=== PATIENT | male | born 1940 | race Two or more races ===

== ENCOUNTER 2024-05-27 12:32 | Inpatient (IN) | payer OTHER ==
[~2024-05-27] VITALS: Ht 172.7 cm; Wt 65.8 kg
--- NOTE | 2024-05-27 12:56 | NUR ---
PACIENTE ALERTA Y ORIENTADO X 3. REFIERE DESDE EL VIERNES SANGRADO RECTAL INTERMITENTE AL EVACUAR. REFIERE QUE EN PETERSON ANTERIORES PRESENTO EVACUACIONES CON MARY QUE PARARON LETA REGRESARON EL VIERNES. REFIERE CANCER DE PROSTATA. RESULTADO DE CBC DEL 05/26/24 HEMO 7.5 HEMATO 22.5 Y PLAQUETAS EN 65.
[2024-05-27] MEDS ORDERED: TOPROL XL25 M1 PO (13:01)
[2024-05-27] MEDS ORDERED: COZAAR100 MG PO (13:01)
[2024-05-27] MEDS ORDERED: ECOTRIN81 MG PO (13:01)
[2024-05-27] MEDS ORDERED: ZETIA10 MG PO (13:01)
[2024-05-27] MEDS ORDERED: PEPCID AC20 MG PO (13:01)
[2024-05-27] MEDS ORDERED: XGEVA120 MG/1.7 SQ (13:04)
[2024-05-27] MEDS ORDERED: [UNRECOGNIZED DRUG - OTHER] PO (13:05)
[2024-05-27] MEDS ORDERED: HUMALOG100 UNIT/2 SQ (13:06)
[2024-05-27] MEDS ORDERED: LANTUS SOL100 UNIT/1 SQ (13:06)
--- NOTE | 2024-05-27 13:36 | NUR ---
RN.BRIAN ORIENTA A PTE SOBRE TX MEDICO ORDENADO POR . REALIZA MICHELLE DE MUESTRAS DE LAB HAYES ORDEN MEDICA Y BAJO MEDIDAS ASEPTICAS. VENOPUNCION PATENTE SELAM DE EDEMA Y ERITEMA. PTE PENDIENTE A ESTUDIO, SE NOTIFICA.
[2024-05-27 14:07] LABS: MEAN CELL VOLUME 88.7 fL (80.0-100.00); MEAN CORPUSCULAR HGB CONC 34.6 g/dl (32.0-36.0); RED BLOOD COUNT 2.39 M/uL (4.00-6.00); RED CELL DISTRIBUTION WIDTH 18.1 % (11.5-14.5)
[2024-05-27 14:10] LABS: MEAN CORPUSCULAR HEMOGLOBIN 30.5 pg (27.00-32.0)
[2024-05-27 14:12] LABS: HEMATOCRIT 21.2 % (39.0-48.0); HEMOGLOBIN 7.3 g/dL (13-16.00); PLATELET COUNT 63 K/uL (150-450)
[2024-05-27 14:19] LABS: ALBUMIN 3.2 gm/dL (3.4-5.0); BILIRUBIN TOTAL 0.39 mg/dL (0.3-1.2); CALCIUM 8.8 mg/dL (8.5-10.1); CREATININE SERUM 0.93 mg/dL (0.70-1.30); GFR 77.59; GLOBULINA 3.2 G/DL (2.4-3.5); POTASSIUM 4.2 mEq/L (3.5-5.1); TOTAL PROTEIN 6.4 gm/dL (6.4-8.2)
[2024-05-27 14:43] LABS: INR 1.29; PARTIAL THROMBOPLASTIN TIME 26.9 SECONDS (22.0-34.0); PROTHROMBIN TIME 13.8 SECONDS (9.0-11.5)
--- NOTE | 2024-05-27 16:11 | NUR ---
PTE ALERTA Y ORIENTADO X 3 ESFERAS EN ANN CON BARANDAS ELEVADAS.EN COMPANIA DE FAMILIAR,PENDIENTE A EVALUACION DE DR HANSEN.
[2024-05-27] MEDS ORDERED: DEXTROSE 50 % IN WATER 0.5 G/ML VIAL IV ONE (17:00)
[2024-05-27] MEDS ORDERED: DEXTROSE 50 % IN WATER 0.5 G/ML DISP.SYRIN IV ONE (17:02)
[2024-05-27] MEDS ORDERED: PANTOPRAZOLE SODIUM 40 MG/VIAL VIAL IV SCH (20:17)
[2024-05-27] MEDS ORDERED: METRONIDAZOLE/SODIUM CHLORIDE 100 ML IV SCH (20:19)
[2024-05-27] MEDS ORDERED: INSULIN LISPRO 1,000 UNIT/10 ML UNITS SUBCUTANEO PRN (20:30)
[2024-05-27] MEDS ORDERED: AMINOCAPROIC ACID 20 MG/ML ML IV ONE (20:30)
[2024-05-27] MEDS ORDERED: ONDANSETRON HCL 4 MG in 0.9 % SODIUM CHLORIDE 50 ML IV PRN (20:30)
[2024-05-27] MEDS ORDERED: 0.9 % SODIUM CHLORIDE 1,000 ML IV SCH (20:30)
[2024-05-27] MEDS ORDERED: DEXTROSE 50 % IN WATER 0.5 G/ML DISP.SYRIN IV PRN (20:30)
[2024-05-27] MEDS ORDERED: ACETAMINOPHEN 500 MG GEL..CAP PO PRN (20:30)
[2024-05-27] MEDS ORDERED: CIPROFLOXACIN IN 5 % DEXTROSE 200 ML IV SCH (21:00)
[2024-05-27] MEDS ORDERED: MORPHINE SULFATE 4 MG/ML CARTRIDGE IV SCH (21:00)
[2024-05-27 22:11] LABS: INR 1.47; PARTIAL THROMBOPLASTIN TIME 29.9 SECONDS (22.0-34.0)
[2024-05-27 22:17] LABS: PROTHROMBIN TIME 15.6 SECONDS (9.0-11.5)
[2024-05-27] MEDS ORDERED: FUROsemide 20 MG/2 ML VIAL IV SCH (22:45)
[2024-05-28 02:52] VITALS: BP 121/57; O2SAT 98
[2024-05-28 08:46] LABS: HEMATOCRIT 24.4 % (39.0-48.0); MEAN CELL VOLUME 88.5 fL (80.0-100.00); MEAN CORPUSCULAR HGB CONC 34.7 g/dl (32.0-36.0); RED BLOOD COUNT 2.76 M/uL (4.00-6.00); RED CELL DISTRIBUTION WIDTH 17.2 % (11.5-14.5)
[2024-05-28 08:58] LABS: PLT IN CITRATE 47 K/uL (150-450)
[2024-05-28] MEDS ORDERED: METOPROLOL SUCCINATE 25 MG TAB.SR.24H PO SCH (09:00)
[2024-05-28] MEDS ORDERED: LOSARTAN POTASSIUM 100 MG TABLET PO SCH (09:00)
[2024-05-28 09:34] LABS: HEMOGLOBIN 8.5 g/dL (13-16.00); MEAN CORPUSCULAR HEMOGLOBIN 30.7 pg (27.00-32.0)
[2024-05-28 09:35] LABS: PLATELET COUNT 45 K/uL (150-450)
[2024-05-28 09:38] LABS: MANUAL PLATELET COUNT 132
[2024-05-28 09:59] VITALS: BP 131/63
[2024-05-28 10:14] LABS: PH,URINE 5.5 (5.0-8.0); URINE APPEARANCE Clear; URINE BILIRRUBIN Negative (NEGATIVE); URINE BLOOD Small; URINE COLOR Yellow; URINE GLUCOSE Negative (NEGATIVE); URINE KETONE Negative (NEGATIVE); URINE LEUKOCYTE Negative; URINE NITRATE Negative; URINE PROTEIN Trace (NEGATIVE); URINE UROBILINOGEN 0.2 E.U./dl
[2024-05-28 10:24] LABS: URINE BACTERIA 2.4 uL (0.0-1933); URINE CAST 0.58 uL (0.0-1.40); URINE EPITHELIAL CELLS 0.6 uL (0.0-38.8); URINE RBC 9.5 uL (0.0-20.8); URINE WBC 0.6 uL (0.0-23.2)
[2024-05-28 14:58] LABS: D DIMER > 35.20 MG/L
[2024-05-28 17:58] VITALS: BP 160/68; O2SAT 98
[2024-05-29 01:11] VITALS: BP 167/69
[2024-05-29 04:20] LABS: HEMATOCRIT 32.1 % (39.0-48.0); MEAN CELL VOLUME 84.8 fL (80.0-100.00); MEAN CORPUSCULAR HEMOGLOBIN 30.4 pg (27.00-32.0); MEAN CORPUSCULAR HGB CONC 35.9 g/dl (32.0-36.0); RED BLOOD COUNT 3.78 M/uL (4.00-6.00); RED CELL DISTRIBUTION WIDTH 16.8 % (11.5-14.5)
[2024-05-29 04:21] LABS: HEMOGLOBIN 11.5 g/dL (13-16.00); PLATELET COUNT 39 K/uL (150-450)
[2024-05-29 08:37] LABS: INR 1.27; PARTIAL THROMBOPLASTIN TIME 28.9 SECONDS (22.0-34.0); PROTHROMBIN TIME 13.6 SECONDS (9.0-11.5)
[2024-05-29 09:19] VITALS: BP 149/74; O2SAT 96
[2024-05-29] MEDS ORDERED: DEXTROSE 50 % IN WATER 0.5 G/ML VIAL IV PRN (14:30)
== END 2024-05-29 14:36 | disposition home or self-care (01) | DRG 812 ==
LOC: ER 12:33 → MEDJ 20:48 → SEC-K 20:52 → MEDJ 21:42
PROVIDERS: General Practice; ADMIT Internal Medicine; ATTEND Internal Medicine
PROC: 8E0ZXY6 Isolation (ICD-10-PCS; 2024-05-27)
PROC: 30233N1 Transfusion of Nonautologous Red Blood Cells into Peripheral Vein, Percutaneous Approach (ICD-10-PCS; principal; 2024-05-28)
PROC: 30233K1 Transfusion of Nonautologous Frozen Plasma into Peripheral Vein, Percutaneous Approach (ICD-10-PCS; 2024-05-28)
DX: D64.89 Other specified anemias (principal); K62.89 Other specified diseases of anus and rectum; D61.818 Other pancytopenia; D50.0 Iron deficiency anemia secondary to blood loss (chronic)

== ENCOUNTER 2024-06-20 12:08 | Inpatient (IN) | payer OTHER ==
[~2024-06-20] VITALS: Ht 175.3 cm; Wt 52.2 kg
[~2024-06-20 12:08] MED LIST: COZAAR100 MG PO; ECOTRIN81 MG PO; HUMALOG100 UNIT/2 SQ; LANTUS SOL100 UNIT/1 SQ; PEPCID AC20 MG PO; TOPROL XL25 M1 PO; XGEVA120 MG/1.7 SQ; ZETIA10 MG PO; [UNRECOGNIZED DRUG - OTHER] PO
--- NOTE | 2024-06-20 12:19 | NUR ---
PTE LLEGA EN AMBULANCIA POR DEBILIDAD EN EL HOGAR. SE LE MICHELLE S/V Y SE UBICA EN ANN .
[2024-06-20] MEDS ORDERED: FAMOtidine 10 MG/ML (4ML VIAL) IV STA (13:00)
[2024-06-20] MEDS ORDERED: 0.9 % SODIUM CHLORIDE 1,000 ML IV STA (13:01)
[2024-06-20] MEDS ORDERED: FAMOTIDINE/PF 20 MG/2 ML VIAL ONE (13:18)
[2024-06-20 13:49] LABS: BASO % 0.3 % (0.1-1.2); LYMPH # 0.37 (1.18-3.74); LYMPH % 11.5 % (19.3-53.1); MEAN CORPUSCULAR HEMOGLOBIN 29.7 pg (25.6-32.2); MONO # 0.22 (0.24-0.82); MONO % 6.8 % (4.7-12.5); NEUT # 2.49 (1.56-6.13); NEUT % 77.4 % (34.0-71.1); RED BLOOD COUNT 2.39 M/uL (4.63-6.08)
--- NOTE | 2024-06-20 13:51 | NUR ---
PTE EVALUADA POR EL ,FLORENCE QUIEN ORDENA TRATAMIENTO LA CUAL SE EJECUTA SE ENVIA PTE ESTUDIO DE CT SCAN. SE MANTIENE BAJO OBSERVACION.
[2024-06-20 14:08] LABS: INR 1.15; PARTIAL THROMBOPLASTIN TIME 27.6 SECONDS (22.0-34.0); PROTHROMBIN TIME 12.4 SECONDS (9.0-11.5)
[2024-06-20 14:16] LABS: ALBUMIN 2.1 gm/dL (3.4-5.0); BILIRUBIN TOTAL 0.66 mg/dL (0.3-1.2); BILIRUBIN,CONJUGATED 0.21 mg/dL (0.0-0.2); BILIRUBIN,UNCONJUGATED 0.45 mg/dL (0.0-0.6); CALCIUM 7.7 mg/dL (8.5-10.1); CREATININE SERUM 0.82 mg/dL (0.70-1.30); GFR 89.73; POTASSIUM 4.62 mEq/L (3.5-5.1); TOTAL PROTEIN 5.7 gm/dL (6.4-8.2)
[2024-06-20 14:52] LABS: HEMATOCRIT 20.4 % (40.1-51.0)
[2024-06-20 14:55] LABS: HEMOGLOBIN 7.1 g/dL (13.7-17.5); PLATELET COUNT 16 K/uL (163-369)
[2024-06-20 15:33] LABS: PH,URINE 5.5 (5.0-8.0); URINE APPEARANCE Clear; URINE BILIRRUBIN Negative (NEGATIVE); URINE BLOOD Small; URINE COLOR Yellow; URINE GLUCOSE Negative (NEGATIVE); URINE KETONE Trace (NEGATIVE); URINE LEUKOCYTE Negative; URINE NITRATE Negative
[2024-06-20 15:36] LABS: URINE EPITHELIAL CELLS 7.4 uL (0.0-38.8); URINE RBC 5.8 uL (0.0-20.8)
[2024-06-20 16:13] LABS: URINE CAST 0.88 uL (0.0-1.40); URINE PROTEIN 100 (NEGATIVE)
--- NOTE | 2024-06-20 17:15 | NUR ---
SE REQUIZAN 3 UNIDADES PRBCS FRACCIONADAS.
[2024-06-20] MEDS ORDERED: PIPERACILLIN/TAZOBACTAM SODIUM 3.375 GM in 0.9 % SODIUM CHLORIDE 100 ML IV SCH (19:25)
[2024-06-20] MEDS ORDERED: PANTOPRAZOLE SODIUM 40 MG/VIAL VIAL IV SCH (19:25)
[2024-06-20] MEDS ORDERED: ACETAMINOPHEN 500 MG GEL..CAP PO PRN (19:30)
[2024-06-20] MEDS ORDERED: FUROsemide 20 MG/2 ML VIAL IV SCH (19:30)
[2024-06-20] MEDS ORDERED: 0.9 % SODIUM CHLORIDE 1,000 ML IV SCH (19:30)
[2024-06-20] MEDS ORDERED: CEFEPIME HCL 2,000 MG in DEXTROSE 5 % IN WATER 100 ML IV SCH (19:32)
[2024-06-20] MEDS ORDERED: AMINOCAPROIC ACID 20 MG/ML ML IV SCH (21:00)
[2024-06-21 04:00] VITALS: BP 133/63; O2SAT 99
[2024-06-21 04:59] LABS: D DIMER 35.06 MG/L
[2024-06-21 08:00] VITALS: BP 136/68; O2SAT 97
[2024-06-21] MEDS ORDERED: METOPROLOL SUCCINATE 25 MG TAB.SR.24H PO SCH (09:00)
[2024-06-21] MEDS ORDERED: SUCRALFATE 1 G TABLET RECTAL SCH (09:00)
[2024-06-21] MEDS ORDERED: LOSARTAN POTASSIUM 100 MG TABLET PO SCH (09:00)
[2024-06-21] MEDS ORDERED: IRON FUM,PS/FOLIC/BCOMP,C NO.9 1 CAP CAPSULE PO SCH (09:00)
[2024-06-21] MEDS ORDERED: FUROsemide 20 MG/2 ML VIAL IV SCH (09:00)
[2024-06-21] MEDS ORDERED: AMINOCAPROIC ACID 250 MG/ML VIAL IV STA (10:59)
[2024-06-21 16:31] LABS: INR 1.21; PARTIAL THROMBOPLASTIN TIME 27.9 SECONDS (22.0-34.0)
[2024-06-21] MEDS ORDERED: AMINOCAPROIC ACID 20 MG/ML ML IV SCH (17:00)
[2024-06-21 17:47] VITALS: BP 110/72
[2024-06-21] MEDS ORDERED: INSULIN LISPRO 1,000 UNIT/10 ML UNITS SUBCUTANEO PRN (21:45)
[2024-06-21] MEDS ORDERED: DEXTROSE 50 % IN WATER 0.5 G/ML VIAL IV PRN (21:45)
[2024-06-21 22:31] LABS: EOS # 0.02 (0.04-0.54); EOS % 0.6 % (0.7-7.0); LYMPH # 0.35 (1.18-3.74); LYMPH % 11.1 % (19.3-53.1); MONO # 0.27 (0.24-0.82); MONO % 8.5 % (4.7-12.5); NEUT # 2.43 (1.56-6.13); RED CELL DISTRIBUTION WIDTH 16.3 % (11.6-14.4)
[2024-06-21 22:34] LABS: HEMATOCRIT 19.5 % (40.1-51.0); HEMOGLOBIN 6.9 g/dL (13.7-17.5); PLATELET COUNT 83 K/uL (163-369)
[2024-06-22 01:40] VITALS: O2SAT 93
[2024-06-22 01:48] VITALS: BP 97/58
[2024-06-22 04:34] VITALS: O2SAT 93
[2024-06-22] MEDS ORDERED: NOREPINEPHRINE BITARTRATE 8 MG in DEXTROSE 5 % IN WATER 250 ML IV SCH (08:00)
[2024-06-22] MEDS ORDERED: HYDROCORTISONE SODIUM SUCC/PF 100 MG VIAL IV STA (08:05)
[2024-06-22] MEDS ORDERED: DOPamine HCL IN DEXTROSE 5 % 250 ML IV SCH (08:15)
[2024-06-22] MEDS ORDERED: HYDROCORTISONE SODIUM SUCC/PF 100 MG VIAL ONE (08:28)
[2024-06-22] MEDS ORDERED: BUDESONIDE 0.5 MG/2 ML AMPUL.NEB IH SCH (09:00)
[2024-06-22] MEDS ORDERED: IPRATROPIUM/ALBUTEROL SULFATE 3 ML AMPUL.NEB IH SCH (09:00)
[2024-06-22 10:04] VITALS: BP 80/44; O2SAT 96
[2024-06-22] MEDS ORDERED: METRONIDAZOLE/SODIUM CHLORIDE 100 ML IV SCH (13:00)
[2024-06-22] MEDS ORDERED: HYDROCORTISONE SODIUM SUCC/PF 50 MG/ML ML IV SCH (14:00)
== END 2024-06-22 13:11 | disposition expired | DRG 811 ==
LOC: ER 12:08 → MEDI 20:25
PROVIDERS: General Practice; ADMIT Internal Medicine; ATTEND Internal Medicine
PROC: BW21ZZZ Computerized Tomography (CT Scan) of Abdomen and Pelvis (ICD-10-PCS; 2024-06-20)
PROC: 30233N1 Transfusion of Nonautologous Red Blood Cells into Peripheral Vein, Percutaneous Approach (ICD-10-PCS; 2024-06-21)
PROC: 0BH17EZ Insertion of Endotracheal Airway into Trachea, Via Natural or Artificial Opening (ICD-10-PCS; principal; 2024-06-22)
PROC: 5A1935Z Respiratory Ventilation, Less than 24 Consecutive Hours (ICD-10-PCS; 2024-06-22)
PROC: 4A12X4Z Monitoring of Cardiac Electrical Activity, External Approach (ICD-10-PCS; 2024-06-22)
DX: D64.9 Anemia, unspecified (principal); R65.21 Severe sepsis with septic shock; K62.5 Hemorrhage of anus and rectum; D69.6 Thrombocytopenia, unspecified; R57.0 Cardiogenic shock; I25.10 Atherosclerotic heart disease of native coronary artery without angina pectoris; I10 Essential (primary) hypertension; Z79.4 Long term (current) use of insulin; C61 Malignant neoplasm of prostate; E78.5 Hyperlipidemia, unspecified; K62.7 Radiation proctitis; E11.65 Type 2 diabetes mellitus with hyperglycemia; D63.0 Anemia in neoplastic disease; D61.818 Other pancytopenia